=== PATIENT | female | born 1945 | race American Indian/Alaskan Native ===

== ENCOUNTER 2017-03-23 17:06 | Outpatient (CLI) | payer MEDICARE ==
[2017-03-23 17:33] LABS: Blood Urea Nitrogen 6 mg/dL (7-17)
--- NOTE | 2017-03-25 07:32 | Magnetic Resonance Report ---
MRI OF THE BRAIN WITHOUT CONTRAST: HISTORY: Right orbital mass, loss of vision. PROCEDURE: Multiplanar, multisequence MR imaging of the brain without IV contrast was performed. FINDINGS: Please note that the patient refused IV gadolinium and terminated the exam early. MR brain without contrast was performed. There is advanced cortical volume loss. The left cerebral hemisphere is more affected than the right cerebral hemisphere. There are moderate nonspecific chronic white matter changes bilaterally which again are more pronounced on the left side. 2 or 3 chronic lacunar infarcts are identified in the left rivera radiata. An approximate 3.2 cm chronic cortical infarct is identified in the left occipital lobe. There is no evidence for diffusion restriction, hemorrhage, mass or extra-axial fluid collection. The midline structures are central. The basal cisterns are patent. Normal ventricular size. Noncontrast thin collimation images were obtained through the orbital cavities which demonstrate no specific abnormality. The globes, optic nerves, extraocular muscles and retro-orbital fat are within normal limits. The visualized paranasal sinuses and mastoid air cells are well aerated. IMPRESSION: Advanced volume loss and chronic white matter changes which are most pronounced in the left cerebral hemisphere. Chronic infarcts in the left rivera radiata and left occipital lobe. No acute intracranial process is appreciated. No right orbital mass is suspected. These findings appear essentially unchanged since the noncontrast CT head performed 11/05/13.
== END 2017-03-23 17:07 | disposition home or self-care (01) ==
LOC: MRI 17:06
PROVIDERS: ATTEND Ophthalmology
DX: H47.093 Other disorders of optic nerve, not elsewhere classified, bilateral (principal); H54.40 Blindness, one eye, unspecified eye; I63.9 Cerebral infarction, unspecified; I10 Essential (primary) hypertension; Z87.891 Personal history of nicotine dependence
CPT/HCPCS: 36415; 70551; 82565; 84520

== ENCOUNTER 2017-04-03 15:19 | Outpatient (CLI) | payer MEDICARE ==
--- NOTE | 2017-04-07 07:54 | Magnetic Resonance Report ---
MRI OF THE BRAIN WITHOUT CONTRAST: HISTORY: Loss of the site, right optic nerve mass PROCEDURE: Multiplanar, multisequence MR imaging of the brain without IV contrast was performed. Thin collimation images were performed through the orbital cavities. FINDINGS: Compared to the MR brain dated 03/23/[address] head performed 11/05/13. Volume loss is again noted. This is again most pronounced throughout the left cerebral hemisphere. There is diffuse increase T2 signal within the white matter of the left cerebral hemisphere as well as areas of cortical infarct in the left parietal and left occipital lobes. Subcentimeter chronic lacunar infarcts are noted in the left rivera radiata. Cortical infarct in the left occipital region measures up to 3 cm in diameter. Mild nonspecific chronic white matter changes are noted within the right cerebral hemisphere. The right cerebral hemisphere is within normal limits otherwise. No evidence for acute ischemia, hemorrhage, mass or extra-axial fluid collection. The posterior fossa and its contents are within normal limits. Thin collimation images through both orbital cavities demonstrate no abnormality. The optic nerves are symmetric and unremarkable. The extraocular muscles and retro-orbital fat are within normal limits. Normal globes. IMPRESSION: No orbital mass is detected. Volume loss. There is evidence for a previous ischemic insult throughout the left cerebral hemisphere. This primarily affects the watershed zones within the left cerebral hemisphere. Chronic cortical infarcts are identified in the left parietal cortex and left occipital cortex. These findings appear unchanged since the CT brain without contrast dated 11/05/13.
== END 2017-04-03 15:20 | disposition home or self-care (01) ==
LOC: MRI 15:19
PROVIDERS: ATTEND Ophthalmology
DX: I63.9 Cerebral infarction, unspecified (principal); H54.62 Unqualified visual loss, left eye, normal vision right eye; I10 Essential (primary) hypertension; Z87.891 Personal history of nicotine dependence
CPT/HCPCS: 70551

== ENCOUNTER 2019-05-03 06:07 | Inpatient (IN) | payer MEDICARE, MEDICAID ==
[2019-05-03] MEDS ORDERED: LORazepam 2 MG/ML VIAL IV ONE ×3 (06:10→07:37)
[2019-05-03] MEDS ORDERED: LORazepam 2 MG/ML VIAL ONE (06:12)
[2019-05-03] MEDS ORDERED: levETIRAcetam 1000 MG/NS 0.75% 1,000 MG/100 ML BAG IV ONE ×2 (06:16)
--- NOTE | 2019-05-03 06:22 | Consultation ---
History of Present Illness History of present illness: [facility] Impression: Patient presenting in focal motor status without impaired awareness. Similar presentation in 2014. Likely from prior left hemispheric cortical infarcts seen on CT. Rule out toxic/metabolic/infectious etiology provoking this seizure focus. Presentation does not appear to include negative deficits, so low suspicion for stroke. Not a tpa candidate due to: low suspicion for stroke - patient seizing Not an LARRY candidate due to: low suspicion for stroke - patient seizing Differential Diagnosis: 1. Seizure Comments: Door time: 606 [employer] contacted: [phone] [employer] at bedside: 0600 NIHSS assessment time: 606 Recommendations: Lorazepam 2mg IV Load with levetiracetam 1000mg IV once Start levetiracetam 500mg BID maintenance 12 hours after load Seizure precautions Lorazepam PRN seizures longer than 3 mins Toxic/metabolic/infectious work up Consider MRI brain if any new deficits present after seizure abates inpatient neurology consultation Discussed with ED MD CC: stroke alert History of Present Illness Patient is a73 year old woman with a history of prior stroke with residual spastic right hemiparesis presenting with seizures. Last normal at 0500 as witnessed by [facility] staff. Thereafter staff found here with rhythmic jerking of the right face and arm. Her speech has been incomprehensible. She is following commands and awake, though. Records do indicate patient had similar events in 2014, for which she was placed on levetiracetam. However, she is not currently on any antiseizure medications. Diagnostic: CT head wo - nothing acute Exam: NIHSS score: 21 Patient with rhythmic jerking of the right face and arm with forced right gaze deviation. She can follow commands with LUE. Speech is incomprehensible. Medical Decision Making: - Extensive number of diagnosis or management options are considered above. - Extensive amount of complex data reviewed. - High risk of complication and/or morbidity or mortality are associated with differential diagnostic considerations above. - There may be Uncertain outcome and increased probability of prolonged functional impairment or high probability of severe prolonged functional impairment associated with some of these differential diagnosis. Medical Data Reviewed: 1.Data reviewed include clinical labs, radiology, Medical Tests; 2.Tests results discussed w/performing or interpreting physician; 3.Obtaining/reviewing old medical records; 4.Obtaining case history from another source; 5.Independent review of image, tracing or specimen. Patient was informed the Neurology Consult would happen via TeleHealth consult by way of interactive audio and video telecommunications and consented to receiving care in this manner. Medications and Allergies Allergies Allergy/AdvReac Type Severity Reaction Status Date / Time No Known Allergies Allergy Verified 11/04/13 11:27 Home Medications Medication Instructions Recorded Confirmed Last Taken Type Acetaminophen [Acetaminophen TAB] 650 mg PO Q6H PRN 11/04/13 11/04/13 Unknown History Calcium Carbonate [Oscal] 500 mg PO DAILY 11/04/13 11/04/13 Unknown History Docusate Sodium [Colace CAP] 100 mg PO DAILY 11/04/13 11/04/13 Unknown History Magnesium Hydroxide [Milk of 30 ml PO DAILY PRN 11/04/13 11/04/13 Unknown History Magnesia] Potassium Chloride [Klor-Con 10] 20 meq PO BID 11/04/13 11/04/13 Unknown History Sennosides/Docusate Sodium [Senna 2 tab PO BID 11/04/13 11/04/13 Unknown History Laxative Tablet] Clopidogrel [Plavix] 75 mg PO ONCE #30 tablet 11/06/13 Unknown Rx Simvastatin (Nf) [Zocor TAB] 20 mg PO QHS #30 tablet 11/06/13 Unknown Rx levETIRAcetam [Keppra TAB] 500 mg PO BID #60 tablet 11/06/13 Unknown Rx - Level of Consciousness 1a. Level of Consciousness: alert/keenly responsive - LOC Questions 1b. LOC Questions: dysarthric/intubated - LOC Command 1c. LOC Commands: performs tasks correctly - Best Gaze 2. Best Gaze: forced deviation - Visual 3. Visual: no visual loss - Facial Palsy 4. Facial Palsy: partial paralysis - Motor Arm 5a. Motor Arm Left: no drift 5b. Motor Arm Right: no gravity effort - Motor Leg 6a. Motor Leg Left: no movement 6b. Motor Leg Right: no movement - Limb Ataxia 7. Limb Ataxia: absent - Sensory 8. Sensory: normal - Best Language 9. Best Language: mute/global aphasia - Dysarthria 10. Dysarthria: mute/anarrthric - Extinction and Inattention 11. Extinction/Inattention: no abnormality - Scoring Total Score: 21 Stroke Severity: Severe Stroke
--- NOTE | 2019-05-03 06:45 | Cat Scan Report ---
CT HEAD WITHOUT CONTRAST INDICATION / CLINICAL INFORMATION: MAIN: STROKE ALERT. ALTERED MENTAL STATUS. TECHNIQUE: All CT scans at this location are performed using CT dose reduction for ALARA by means of automated e xposure control. COMPARISON: MRI dated 04/03/[address] dated 11/05/13 FINDINGS: HEMORRHAGE: None. EXTRA-AXIAL SPACES: Normal in size and morphology for the patient's age. VENTRICULAR SYSTEM: Mild ex vacuo dilation of the left lateral ventricle is unchanged. CEREBRAL PARENCHYMA: Left frontal and left parieto-occipital encephalomalacia and extensive bilateral white matter hypodensities are unchanged. Is likely related to old ischemic insults. No acute territ orial infarct noted. MIDLINE SHIFT OR HERNIATION: None. CEREBELLUM / BRAINSTEM: No significant abnormality. ORBITS: Normal as visualized. SOFT TISSUES of HEAD: No significant abnormality. CALVARIUM: No significant abnormality. PARANASAL SINUSES / MASTOID AIR CELLS: Normal as visualized. ADDITIONAL FINDINGS: None. IMPRESSION: 1. No acute intracranial abnormality. 2. Old left cerebral hemisphere ischemic lesions, unchanged. COMMUNICATION: Time of Communication (MEDICAL CENTER MANAGER/CDT): 5:40 AM Licensed Practitioner Receiving Report: Dr. Todd in the ED Signer Name: Christine Cheema MD Signed: 05/03/2019 6:40 AM Workstation Name: [id number]
[2019-05-03] MEDS ORDERED: FOSPHENYTOIN 1,000 MG.PE in SODIUM CHLORIDE 0.9% 100 ML IV ONE (06:49)
--- NOTE | 2019-05-03 06:55 | Emergency Department Report ---
ED Seizure HPI - General Chief Complaint: Neuro Symptoms/Deficit Stated Complaint: POSS STROKE Time Seen by Provider: 05/03/19 06:15 Source: EMS Mode of arrival: Stretcher Limitations: Altered Mental Status, Physical Limitation - History of Present Illness Initial Comments: 73-year-old female presents from a [facility] with a past medical hi story of CVA with residual right-sided weakness, aphasia, hyperlipidemia, and seizures presents to the hospital with complaints of seizure activity. EMS initially called for acute stroke citing right-sided itching of face, right arm and right leg that started at 5 AM. No medications were given in route. Patient is on Keppra 1000 mg twice a day as per longterm record. Patient is able to follow commands although have active right-sided face twitching, right eye deviation, and right arm twitching as well consistent with focal seizure. Patient had a similar presentation in 2013 with diagnosis of new onset seizure at that time. Blood glucose 86 upon arrival. - Related Data Home Medications Medication Instructions Recorded Confirmed Last Taken Acetaminophen [Acetaminophen TAB] 650 mg PO Q6H PRN 11/04/13 05/03/19 Unknown Calcium Carbonate [Oscal] 500 mg PO DAILY 11/04/13 05/03/19 Unknown Docusate Sodium [Colace CAP] 100 mg PO DAILY 11/04/13 05/03/19 Unknown Magnesium Hydroxide [Milk of 30 ml PO DAILY PRN 11/04/13 05/03/19 Unknown Magnesia] Potassium Chloride [Klor-Con 10] 20 meq PO BID 11/04/13 05/03/19 Unknown Sennosides/Docusate Sodium [Senna 2 tab PO BID 11/04/13 05/03/19 Unknown Laxative Tablet] Brimonidine Tartrate/Timolol 10 ml OP Q12HR 05/03/19 05/03/19 Unknown [Combigan 0.2%-0.5% Eye Drops] Brinzolamide [Azopt 1%] 1 drop OU Q12HR 05/03/19 05/03/19 Unknown Calcium Carbonate/Vitamin D3 1 each PO QDAY 05/03/19 05/03/19 Unknown [Oysco 500-Vit D3 200 Tablet] Latanoprost 0.005% [Xalatan 0.005%] 1 drop OP QPM 05/03/19 05/03/19 Unknown levETIRAcetam [Keppra] 1,000 mg PO BID 05/03/19 05/03/19 Unknown Previous Rx's Medication Instructions Recorded Last Taken Type Clopidogrel [Plavix] 75 mg PO ONCE #30 tablet 11/06/13 Unknown Rx Simvastatin (Nf) [Zocor TAB] 20 mg PO QHS #30 tablet 11/06/13 Unknown Rx Allergies Allergy/AdvReac Type Severity Reaction Status Date / Time No Known Allergies Allergy Verified 11/04/13 11:27 ED Review of Systems ROS: Stated complaint: POSS STROKE Other details as noted in HPI ED Past Medical Hx - Past Medical History Hx Hypertension: Yes Hx CVA: Yes Hx Seizures: Yes Hx Psychiatric Treatment: Yes ("behavorial issues") Hx Dementia: Yes Additional medical history: DVT - Social History Smoking Status: Never Smoker Substance Use Type: None - Medications Home Medications: Home Medications Medication Instructions Recorded Confirmed Last Taken Type Acetaminophen [Acetaminophen TAB] 650 mg PO Q6H PRN 11/04/13 05/03/19 Unknown History Calcium Carbonate [Oscal] 500 mg PO DAILY 11/04/13 05/03/19 Unknown History Docusate Sodium [Colace CAP] 100 mg PO DAILY 11/04/13 05/03/19 Unknown History Magnesium Hydroxide [Milk of 30 ml PO DAILY PRN 11/04/13 05/03/19 Unknown History Magnesia] Potassium Chloride [Klor-Con 10] 20 meq PO BID 11/04/13 05/03/19 Unknown History Sennosides/Docusate Sodium [Senna 2 tab PO BID 11/04/13 05/03/19 Unknown History Laxative Tablet] Clopidogrel [Plavix] 75 mg PO ONCE #30 tablet 11/06/13 05/03/19 Unknown Rx Simvastatin (Nf) [Zocor TAB] 20 mg PO QHS #30 tablet 11/06/13 05/03/19 Unknown Rx Brimonidine Tartrate/Timolol 10 ml OP Q12HR 05/03/19 05/03/19 Unknown History [Combigan 0.2%-0.5% Eye Drops] Brinzolamide [Azopt 1%] 1 drop OU Q12HR 05/03/19 05/03/19 Unknown History Calcium Carbonate/Vitamin D3 1 each PO QDAY 05/03/19 05/03/19 Unknown History [Oysco 500-Vit D3 200 Tablet] Latanoprost 0.005% [Xalatan 0.005%] 1 drop OP QPM 05/03/19 05/03/19 Unknown History levETIRAcetam [Keppra] 1,000 mg PO BID 05/03/19 05/03/19 Unknown History ED Physical Exam - General Limitations: Altered Mental Status, Physical Limitation ED Course Vital Signs 05/03/19 05/03/19 05/03/19 06:10 06:39 06:52 Temperature 98.0 F Pulse Rate 104 H Respiratory 24 Rate Blood Pressure 132/79 Blood Pressure [Left] O2 Sat by Pulse 96 97 Oximetry 05/03/19 05/03/19 08:37 08:38 Temperature 98.8 F Pulse Rate 94 H Respiratory 20 20 Rate Blood Pressure Blood Pressure 139/67 [Left] O2 Sat by Pulse 96 96 Oximetry - Reevaluation(s) Reevaluation #1: 05/03/19 06:[address] patient was still having right face and right arm clonic tonic movement despite Keppra and Ativan 2 mg. Additional Ativan 2 mg provided and fosphophenyton ordered. Patient still able to follow commands. Reevaluation #2: 05/03/19 07:37 right sided twitching has decreased significantly but still present. gaze preference improved. Additional ativan 1 mg ordered. 05/03/19 08:28 seizure activity stopped after the additional ativan dose. - Consultations Consultation #1: 05/03/19 06:52 Patient was evaluated by neurologist at the door for possible stroke. Gave verbal order for Ativan 2 mg IV and Keppra 1 g. ED Medical Decision Making - Lab Data Result diagrams: 05/03/19 06:42 05/03/19 06:42 Lab Results 05/03/19 05/03/19 05/03/19 Range/Units 06:22 06:42 06:42 WBC 7.3 (4.5-11.0) K/mm3 RBC 5.57 H (3.65-5.03) M/mm3 Hgb 15.0 H (10.1-14.3) gm/dl Hct 43.7 H (30.3-42.9) % MCV 78 L (79-97) fl MCH 27 L (28-32) pg MCHC 34 (30-34) % RDW 15.2 (13.2-15.2) % Plt Count 219 (140-440) K/mm3 Lymph % (Auto) 31.8 (13.4-35.0) % Blount % (Auto) 7.9 H (0.0-7.3) % Eos % (Auto) 1.6 (0.0-4.3) % Baso % (Auto) 0.8 (0.0-1.8) % Lymph # 2.3 (1.2-5.4) K/mm3 Blount # 0.6 (0.0-0.8) K/mm3 Eos # 0.1 (0.0-0.4) K/mm3 Baso # 0.1 (0.0-0.1) K/mm3 Seg Neutrophils % 57.9 (40.0-70.0) % Seg Neutrophils # 4.2 (1.8-7.7) K/mm3 PT 13.6 (12.2-14.9) Sec. INR 1.07 (0.87-1.13) APTT 32.2 (24.2-36.6) Sec. Thrombin Time (15.1-19.6) Sec. Sodium (137-145) mmol/L Potassium (3.6-5.0) mmol/L Chloride (98-107) mmol/L Carbon Dioxide (22-30) mmol/L Anion Gap mmol/L BUN (7-17) mg/dL Creatinine (0.7-1.2) mg/dL Estimated GFR ml/min BUN/Creatinine Ratio % Glucose (65-100) mg/dL POC Glucose 86 (70-105) Calcium (8.4-10.2) mg/dL Magnesium (1.7-2.3) mg/dL Total Bilirubin (0.1-1.2) mg/dL Direct Bilirubin (0-0.2) mg/dL Indirect Bilirubin mg/dL AST (5-40) units/L ALT (7-56) units/L Alkaline Phosphatase (35-129) units/L Troponin T (0.00-0.029) ng/mL Total Protein (6.3-8.2) g/dL Albumin (3.9-5) g/dL Albumin/Globulin Ratio % 10/01/19 10/01/19 10/01/19 Range/Units 06:42 06:42 06:42 WBC (4.5-11.0) K/mm3 RBC (3.65-5.03) M/mm3 Hgb (10.1-14.3) gm/dl Hct (30.3-42.9) % MCV (79-97) fl MCH (28-32) pg MCHC (30-34) % RDW (13.2-15.2) % Plt Count (140-440) K/mm3 Lymph % (Auto) (13.4-35.0) % Blount % (Auto) (0.0-7.3) % Eos % (Auto) (0.0-4.3) % Baso % (Auto) (0.0-1.8) % Lymph # (1.2-5.4) K/mm3 Blount # (0.0-0.8) K/mm3 Eos # (0.0-0.4) K/mm3 Baso # (0.0-0.1) K/mm3 Seg Neutrophils % (40.0-70.0) % Seg Neutrophils # (1.8-7.7) K/mm3 PT (12.2-14.9) Sec. INR (0.87-1.13) APTT (24.2-36.6) Sec. Thrombin Time 16.8 (15.1-19.6) Sec. Sodium 140 (137-145) mmol/L Potassium 3.7 (3.6-5.0) mmol/L Chloride 105.7 (98-107) mmol/L Carbon Dioxide 22 (22-30) mmol/L Anion Gap 16 mmol/L BUN 5 L (7-17) mg/dL Creatinine 0.8 (0.7-1.2) mg/dL Estimated GFR > 60 ml/min BUN/Creatinine Ratio 6 % Glucose 111 H (65-100) mg/dL POC Glucose (70-105) Calcium 9.4 (8.4-10.2) mg/dL Magnesium 2.30 (1.7-2.3) mg/dL Total Bilirubin (0.1-1.2) mg/dL Direct Bilirubin (0-0.2) mg/dL Indirect Bilirubin mg/dL AST (5-40) units/L ALT (7-56) units/L Alkaline Phosphatase (35-129) units/L Troponin T < 0.010 (0.00-0.029) ng/mL Total Protein (6.3-8.2) g/dL Albumin (3.9-5) g/dL Albumin/Globulin Ratio % 05/03/19 Range/Units 06:42 WBC (4.5-11.0) K/mm3 RBC (3.65-5.03) M/mm3 Hgb (10.1-14.3) gm/dl Hct (30.3-42.9) % MCV (79-97) fl MCH (28-32) pg MCHC (30-34) % RDW (13.2-15.2) % Plt Count (140-440) K/mm3 Lymph % (Auto) (13.4-35.0) % Blount % (Auto) (0.0-7.3) % Eos % (Auto) (0.0-4.3) % Baso % (Auto) (0.0-1.8) % Lymph # (1.2-5.4) K/mm3 Blount # (0.0-0.8) K/mm3 Eos # (0.0-0.4) K/mm3 Baso # (0.0-0.1) K/mm3 Seg Neutrophils % (40.0-70.0) % Seg Neutrophils # (1.8-7.7) K/mm3 PT (12.2-14.9) Sec. INR (0.87-1.13) APTT (24.2-36.6) Sec. Thrombin Time (15.1-19.6) Sec. Sodium (137-145) mmol/L Potassium (3.6-5.0) mmol/L Chloride (98-107) mmol/L Carbon Dioxide (22-30) mmol/L Anion Gap mmol/L BUN (7-17) mg/dL Creatinine (0.7-1.2) mg/dL Estimated GFR ml/min BUN/Creatinine Ratio % Glucose (65-100) mg/dL POC Glucose (70-105) Calcium (8.4-10.2) mg/dL Magnesium (1.7-2.3) mg/dL Total Bilirubin 0.30 (0.1-1.2) mg/dL Direct Bilirubin < 0.2 (0-0.2) mg/dL Indirect Bilirubin 0.1 mg/dL AST 14 (5-40) units/L ALT 12 (7-56) units/L Alkaline Phosphatase 66 (35-129) units/L Troponin T (0.00-0.029) ng/mL Total Protein 7.4 (6.3-8.2) g/dL Albumin 3.8 L (3.9-5) g/dL Albumin/Globulin Ratio 1.1 % - EKG Data -: EKG Interpreted by Me EKG shows normal: sinus rhythm, ST-T waves (lvh, lat t wve inv) Rate: normal - EKG Data When compared to previous EKG there are: no significant change - Radiology Data Radiology results: report reviewed CT HEAD WITHOUT CONTRAST INDICATION / CLINICAL INFORMATION: MAIN: STROKE ALERT. ALTERED MENTAL STATUS. TECHNIQUE: All CT scans at this location are performed using CT dose reduction for ALARA by means of automated exposure control. COMPARISON: MRI dated 04/03/[address] dated 11/05/13 FINDINGS: HEMORRHAGE: None. EXTRA-AXIAL SPACES: Normal in size and morphology for the patient's age. VENTRICULAR SYSTEM: Mild ex vacuo dilation of the left lateral ventricle is unchanged. CEREBRAL PARENCHYMA: Left frontal and left parieto-occipital encephalomalacia and extensive bilateral white matter hypodensities are unchanged. Is likely related to old ischemic insults. No a cute territorial infarct noted. MIDLINE SHIFT OR HERNIATION: None. CEREBELLUM / BRAINSTEM: No significant abnormality. ORBITS: Normal as visualized. SOFT TISSUES of HEAD: No significant abnormality. CALVARIUM: No significant abnormality. PARANASAL SINUSES / MASTOID AIR CELLS: Normal as visualized. ADDITIONAL FINDINGS: None. IMPRESSION: 1. No acute intracranial abnormality. 2. Old left cerebral hemisphere ischemic lesions, unchanged. - Medical Decision Making Patient had focal seizure activity for greater than 1 hour requiring multiple doses of Ativan (5mg IV total), Keppra 1g, and fosphenytoin 1g for improvement. CT head and labs unremarkable. She will be the hospital for further treatment. - Differential Diagnosis sz, cva, intracranial mass, hemorrhage Critical Care Time: No Critical care attestation.: If time is entered above; I have spent that time in minutes in the direct care of this critically ill patient, excluding procedure time. ED Disposition Clinical Impression: Spastic hemiparesis affecting dominant side, Aphasia as late effect of stroke, Focal seizure Disposition: DC-[id number] OP ADMIT IP TO THIS HOSP Is pt being admited?: Yes Condition: Stable Time of Disposition: 07:34 (Dr leigh/dickson)
[2019-05-03 07:01] LABS: Basophils # (Auto) 0.1 K/mm3 (0.0-0.1); Basophils % (Auto) 0.8 % (0.0-1.8); Eosinophils # (Auto) 0.1 K/mm3 (0.0-0.4); Eosinophils % (Auto) 1.6 % (0.0-4.3); Hematocrit 43.7 % (30.3-42.9); Lymphocytes # (Auto) 2.3 K/mm3 (1.2-5.4); Lymphocytes % (Auto) 31.8 % (13.4-35.0); Mean Corpuscular HGB Conc 34 % (30-34); Mean Corpuscular Volume 78 fl (79-97); Monocytes # (Auto) 0.6 K/mm3 (0.0-0.8); Monocytes % (Auto) 7.9 % (0.0-7.3); Platelet Count 219 K/mm3 (140-440); Red Blood Count 5.57 M/mm3 (3.65-5.03); Red Cell Distribution Width 15.2 % (13.2-15.2)
[2019-05-03 07:12] LABS: BUN/Creatinine Ratio 6; Blood Urea Nitrogen 5 mg/dL (7-17); Calcium 9.4 mg/dL (8.4-10.2); Hemolysis Index 5; INR 1.07 (0.87-1.13)
[2019-05-03 07:13] LABS: Partial Thromboplastin Time 32.2 Sec. (24.2-36.6)
[2019-05-03 07:16] LABS: Alanine Aminotransferase 12 units/L (7-56); Albumin 3.8 g/dL (3.9-5)
[2019-05-03 07:22] LABS: Bilirubin,Direct < 0.2 mg/dL (0-0.2)
[2019-05-03] MEDS ORDERED: ONDANSETRON 4 MG/2 ML INJ IV PRN (07:53)
[2019-05-03] MEDS ORDERED: ACETAMINOPHEN 325 MG TAB PO PRN (07:53)
[2019-05-03 08:53] LABS: Amphetamine Screen,Urine PRESUMPTIVE NEGATIVE; Benzodiazepines Screen,Urine PRESUMPTIVE NEGATIVE; Cannabinoid Screen,Urine PRESUMPTIVE NEGATIVE; Cocaine Screen,Urine PRESUMPTIVE NEGATIVE; Methadone Screen,Urine PRESUMPTIVE NEGATIVE; Opiate Screen,Urine PRESUMPTIVE NEGATIVE
[2019-05-03 09:00] LABS: Bilirubin,Urine NEG (Negative); Blood,Urine NEG (Negative); Color,Urine Yellow (Yellow); Mucus,Urine FEW /HPF; Protein,Urine <15 mg/dL mg/dL (Negative); Urobilinogen,Urine < 2.0 mg/dL (<2.0)
[2019-05-03] MEDS ORDERED: MAGNESIUM HYDROXIDE (MOM) ORAL LIQD UDC PO PRN (10:00)
[2019-05-03] MEDS ORDERED: POTASSIUM CHLORIDE 20 MEQ PO SCH (10:00)
[2019-05-03] MEDS ORDERED: hydrALAZINE 20 MG/1 ML INJ IV PRN (12:03)
--- NOTE | 2019-05-03 12:03 | History and Physical Report ---
History of Present Illness Date of admission: 05/03/19 07:39 Chief complaint: Twitching History of present illness: MS. RODRIGUEZ IS 68 YO WOMAN LIVING AT [facility] WITH HISTORY OF CVA WITH RIGHT HEMIPARESIS, EXPRESSIVE APHASIA, recurrent seizures GOUT AND DYSLIDEPMIA WHO PRESENTS WITH SUDDEN ONSET OF TWITCHING She had confusion and was not herself. She kept having tremors and shaking of her right upper extremity. She does not do this at baseline. He denied any fevers any complaints prior to this happening. The patient takes her seizure medications as prescribed in the [facility] every day. Past History Past Medical History: seizures, cva with R michael and expressive aphasia, gout, hyperlipidemia, Past Surgical History: Other (UNABLE TO OBTAIN) Social history: no significant social history Family history: no significant family history Medications and Allergies Allergies Allergy/AdvReac Type Severity Reaction Status Date / Time No Known Allergies Allergy Verified 11/04/13 11:27 Home Medications Medication Instructions Recorded Confirmed Last Taken Type Acetaminophen [Acetaminophen TAB] 650 mg PO Q6H PRN 11/04/13 05/03/19 Unknown History Calcium Carbonate [Oscal 1250MG 500 mg PO DAILY 11/04/13 05/03/19 Unknown History TAB] Docusate Sodium [Colace CAP] 100 mg PO DAILY 11/04/13 05/03/19 Unknown History Magnesium Hydroxide [Milk of 30 ml PO DAILY PRN 11/04/13 05/03/19 Unknown History Magnesia] Potassium Chloride [Klor-Con 10] 20 meq PO BID 11/04/13 05/03/19 Unknown History Sennosides/Docusate Sodium [Senna 2 tab PO BID 11/04/13 05/03/19 Unknown History Laxative Tablet] Clopidogrel [Plavix] 75 mg PO ONCE #30 tablet 11/06/13 05/03/19 Unknown Rx Simvastatin (Nf) [Zocor TAB] 20 mg PO QHS #30 tablet 11/06/13 05/03/19 Unknown Rx Brimonidine Tartrate/Timolol 10 ml OP Q12HR 05/03/19 05/03/19 Unknown History [Combigan 0.2%-0.5% Eye Drops] Brinzolamide [Azopt 1%] 1 drop OU Q12HR 05/03/19 05/03/19 Unknown History Calcium Carbonate/Vitamin D3 1 each PO QDAY 05/03/19 05/03/19 Unknown History [Oysco 500-Vit D3 200 Tablet] Latanoprost 0.005% 1 drop OP QPM 05/03/19 05/03/19 Unknown History levETIRAcetam [Keppra] 1,000 mg PO BID 05/03/19 05/03/19 Unknown History Gabapentin [Neurontin] 400 mg PO BID #60 capsule 05/05/19 Unknown Rx clonazePAM [KlonoPIN] 1 mg PO Q6H PRN #7 tablet 05/05/19 Unknown Rx Active Meds: Active Medications Acetaminophen (Tylenol) 650 mg PO Q4H PRN PRN Reason: Pain MILD(1-3)/Fever >100.5/[place] Clopidogrel Bisulfate (Plavix) 75 mg PO DAILY IMTIAZ Docusate Sodium (Colace) 100 mg PO DAILY IMTIAZ Enoxaparin Sodium (Lovenox) 40 mg SUB-Q QDAY@2200 IMTIAZ Levetiracetam (Keppra) 500 mg PO BID IMTIAZ Magnesium Hydroxide (Milk Of Magnesia) 30 ml PO DAILY PRN PRN Reason: Constipation Ondansetron HCl (Zofran) 4 mg IV Q8H PRN PRN Reason: Nausea And Vomiting Potassium Chloride (K-Dur) 20 meq PO BID IMTIAZ Pravastatin Sodium (Pravachol) 40 mg PO QHS IMTIAZ Senna/Docusate Sodium (Senokot S) 2 tab PO BID IMTIAZ Sodium Chloride (Sodium Chloride Flush Syringe 10 Ml) 10 ml IV BID IMTIAZ Sodium Chloride (Sodium Chloride Flush Syringe 10 Ml) 10 ml IV PRN PRN PRN Reason: LINE FLUSH Review of Systems ROS unobtainable: due to mental status Exam - Constitutional Vitals: Temp Pulse Resp BP Pulse Ox 98.8 F 94 H 20 171/91 100 05/03/19 08:37 05/03/19 08:37 05/03/19 09:30 05/03/19 09:30 05/03/19 09:30 General appearance: Present: mild distress, well-nourished - EENT Eyes: Present: PERRL ENT: hearing intact, clear oral mucosa - Neck Neck: Present: supple, normal ROM - Respiratory Respiratory effort: normal Respiratory: bilateral: CTA - Cardiovascular Heart Sounds: Present: S1 & S2. Absent: rub, click - Extremities Extremities: pulses symmetrical, No edema Peripheral Pulses: within normal limits - Abdominal General gastrointestinal: Present: soft, non-tender, non-distended, normal bowel sounds Female genitourinary: Present: normal - Integumentary Integumentary: Present: clear, warm, dry - Musculoskeletal Musculoskeletal: other (Unable to cooperate with exam) - Psychiatric Psychiatric: no intact judgment & insight - Neurologic Neurologic: CNII-XII intact, other (Continuous shaking of right upper extremity) Results - Labs CBC & Chem 7: 05/05/19 07:45 05/05/19 07:45 Labs: Laboratory Last Values WBC 7.3 K/mm3 (4.5-11.0) 05/03/19 06:42 RBC 5.57 M/mm3 (3.65-5.03) H 05/03/19 06:42 Hgb 15.0 gm/dl (10.1-14.3) H 05/03/19 06:42 Hct 43.7 % (30.3-42.9) H 05/03/19 06:42 MCV 78 fl (79-97) L 05/03/19 06:42 MCH 27 pg (28-32) L 05/03/19 06:42 MCHC 34 % (30-34) 05/03/19 06:42 RDW 15.2 % (13.2-15.2) 05/03/19 06:42 Plt Count 219 K/mm3 (140-440) 05/03/19 06:42 Lymph % (Auto) 31.8 % (13.4-35.0) 05/03/19 06:42 [place] % (Auto) 7.9 % (0.0-7.3) H 05/03/19 06:42 Eos % (Auto) 1.6 % (0.0-4.3) 05/03/19 06:42 Baso % (Auto) 0.8 % (0.0-1.8) 05/03/19 06:42 Lymph # 2.3 K/mm3 (1.2-5.4) 05/03/19 06:42 [place] # 0.6 K/mm3 (0.0-0.8) 05/03/19 06:42 Eos # 0.1 K/mm3 (0.0-0.4) 05/03/19 06:42 Baso # 0.1 K/mm3 (0.0-0.1) 05/03/19 06:42 Seg Neutrophils % 57.9 % (40.0-70.0) 05/03/19 06:42 Seg Neutrophils # 4.2 K/mm3 (1.8-7.7) 05/03/19 06:42 PT 13.6 Sec. (12.2-14.9) 05/03/19 06:42 INR 1.07 (0.87-1.13) 05/03/19 06:42 APTT 32.2 Sec. (24.2-36.6) 05/03/19 06:42 Thrombin Time 16.8 Sec. (15.1-19.6) 05/03/19 06:42 Sodium 140 mmol/L (137-145) 05/03/19 06:42 Potassium 3.7 mmol/L (3.6-5.0) 05/03/19 06:42 Chloride 105.7 mmol/L (98-107) 05/03/19 06:42 Carbon Dioxide 22 mmol/L (22-30) 05/03/19 06:42 Anion Gap 16 mmol/L 05/03/19 06:42 BUN 5 mg/dL (7-17) L 05/03/19 06:42 Creatinine 0.8 mg/dL (0.7-1.2) 05/03/19 06:42 Estimated GFR > 60 ml/min 05/03/19 06:42 BUN/Creatinine Ratio 6 % 05/03/19 06:42 Glucose 111 mg/dL (65-100) H 05/03/19 06:42 POC Glucose 86 (70-105) 05/03/19 06:22 Calcium 9.4 mg/dL (8.4-10.2) 05/03/19 06:42 Magnesium 2.30 mg/dL (1.7-2.3) 05/03/19 06:42 Total Bilirubin 0.30 mg/dL (0.1-1.2) 05/03/19 06:42 Direct Bilirubin < 0.2 mg/dL (0-0.2) 05/03/19 06:42 Indirect Bilirubin 0.1 mg/dL 05/03/19 06:42 AST 14 units/L (5-40) 05/03/19 06:42 ALT 12 units/L (7-56) 05/03/19 06:42 Alkaline Phosphatase 66 units/L (35-129) 05/03/19 06:42 Troponin T < 0.010 ng/mL (0.00-0.029) 05/03/19 06:42 Total Protein 7.4 g/dL (6.3-8.2) 05/03/19 06:42 Albumin 3.8 g/dL (3.9-5) L 05/03/19 06:42 Albumin/Globulin Ratio 1.1 % 05/03/19 06:42 Urine Color Yellow (Yellow) 05/03/19 08:00 Urine Turbidity Clear (Clear) 05/03/19 08:00 Urine pH 6.0 (5.0-7.0) 05/03/19 08:00 Ur Specific [place] 1.015 (1.003-1.030) 05/03/19 08:00 Urine Protein <15 mg/dl mg/dL (Negative) 05/03/19 08:00 Urine Glucose (UA) Neg mg/dL (Negative) 05/03/19 08:00 Urine Ketones Neg mg/dL (Negative) 05/03/19 08:00 Urine Blood Neg (Negative) 05/03/19 08:00 Urine Nitrite Neg (Negative) 05/03/19 08:00 Urine Bilirubin Neg (Negative) 05/03/19 08:00 Urine Urobilinogen < 2.0 mg/dL (<2.0) 05/03/19 08:00 Ur Leukocyte Esterase Neg (Negative) 05/03/19 08:00 Urine WBC (Auto) 1.0 /HPF (0.0-6.0) 05/03/19 08:00 Urine RBC (Auto) 4.0 /HPF (0.0-6.0) 05/03/19 08:00 U Epithel Cells (Auto) 1.0 /HPF (0-13.0) 05/03/19 08:00 Urine Mucus Few /HPF 05/03/19 08:00 Urine Opiates Screen Presumptive negative 05/03/19 08:00 Urine Methadone Screen Presumptive negative 05/03/19 08:00 Ur Barbiturates Screen Presumptive negative 05/03/19 08:00 Ur Phencyclidine Scrn Presumptive negative 05/03/19 08:00 Ur Amphetamines Screen Presumptive negative 05/03/19 08:00 U Benzodiazepines Scrn Presumptive negative 05/03/19 08:00 Urine Cocaine Screen Presumptive negative 05/03/19 08:00 U Marijuana (THC) Screen Presumptive negative 05/03/19 08:00 Drugs of Abuse Note Disclamer 05/03/19 08:00 Assessment and Plan Assessment and plan: 73-year-old woman who was brought to the hospital for shaking of right upper extremity Status epilepticus sp 2 doses of ativan, phenytoin and keppa in ER -neurology consult -[facility]H no acute findings UA and Mg pending, currently able to protect her airway HTN urgency Optimize BP medications CCT 33 mins
[2019-05-03] MEDS ORDERED: LORazepam 2 MG/ML VIAL IV PRN (17:22)
[2019-05-03] MEDS: levETIRAcetam 500 MG in DEXTROSE 5% IN WATER 100 ML IV SCH (21:05)
[2019-05-03] MEDS ORDERED: NON-FORMULARY EACH (Simvastatin 20 MG) PO SCH (22:00)
[2019-05-03] MEDS ORDERED: levETIRAcetam 500 MG TAB PO SCH (22:00)
--- NOTE | 2019-05-03 22:16 | Consultation ---
Medications and Allergies Allergies Allergy/AdvReac Type Severity Reaction Status Date / Time No Known Allergies Allergy Verified 11/04/13 11:27 Home Medications Medication Instructions Recorded Confirmed Last Taken Type Acetaminophen [Acetaminophen TAB] 650 mg PO Q6H PRN 11/04/13 05/03/19 Unknown History Calcium Carbonate [Oscal] 500 mg PO DAILY 11/04/13 05/03/19 Unknown History Docusate Sodium [Colace CAP] 100 mg PO DAILY 11/04/13 05/03/19 Unknown History Magnesium Hydroxide [Milk of 30 ml PO DAILY PRN 11/04/13 05/03/19 Unknown History Magnesia] Potassium Chloride [Klor-Con 10] 20 meq PO BID 11/04/13 05/03/19 Unknown History Sennosides/Docusate Sodium [Senna 2 tab PO BID 11/04/13 05/03/19 Unknown History Laxative Tablet] Clopidogrel [Plavix] 75 mg PO ONCE #30 tablet 11/06/13 05/03/19 Unknown Rx Simvastatin (Nf) [Zocor TAB] 20 mg PO QHS #30 tablet 11/06/13 05/03/19 Unknown Rx Brimonidine Tartrate/Timolol 10 ml OP Q12HR 05/03/19 05/03/19 Unknown History [Combigan 0.2%-0.5% Eye Drops] Brinzolamide [Azopt 1%] 1 drop OU Q12HR 05/03/19 05/03/19 Unknown History Calcium Carbonate/Vitamin D3 1 each PO QDAY 05/03/19 05/03/19 Unknown History [Oysco 500-Vit D3 200 Tablet] Latanoprost 0.005% [Xalatan 0.005%] 1 drop OP QPM 05/03/19 05/03/19 Unknown History levETIRAcetam [Keppra] 1,000 mg PO BID 05/03/19 05/03/19 Unknown History Active Meds: Active Medications Acetaminophen (Tylenol) 650 mg PO Q4H PRN PRN Reason: Pain MILD(1-3)/Fever >100.5/[place] Clopidogrel Bisulfate (Plavix) 75 mg PO DAILY IMTIAZ Docusate Sodium (Colace) 100 mg PO DAILY IMTIAZ Enoxaparin Sodium (Lovenox) 40 mg SUB-Q QDAY@2200 IMTIAZ Hydralazine HCl (Apresoline) 10 mg IV Q4HR PRN PRN Reason: BP >160/100 Levetiracetam 500 mg/ Dextrose 105 mls @ 400 mls/hr IV Q12HR [facility] Last Admin: 05/03/19 21:05 Dose: 400 mls/hr Documented by: Lorazepam (Ativan) 1 mg IV Q4H PRN PRN Reason: Seizures Magnesium Hydroxide (Milk Of Magnesia) 30 ml PO DAILY PRN PRN Reason: Constipation Ondansetron HCl (Zofran) 4 mg IV Q8H PRN PRN Reason: Nausea And Vomiting Potassium Chloride (K-Dur) 20 meq PO BID IMTIAZ Pravastatin Sodium (Pravachol) 40 mg PO QHS IMTIAZ Senna/Docusate Sodium (Senokot S) 2 tab PO BID IMTIAZ Sodium Chloride (Sodium Chloride Flush Syringe 10 Ml) 10 ml IV BID IMTIAZ Sodium Chloride (Sodium Chloride Flush Syringe 10 Ml) 10 ml IV PRN PRN PRN Reason: LINE FLUSH Physical Examination - Vital Signs Vital Signs: Vital Signs Temp Pulse BP 98.0 F 104 H 132/79 05/03/19 06:10 05/03/19 06:10 05/03/19 06:10 Results - Laboratory Findings CBC and BMP: 05/03/19 06:42 05/03/19 06:42 Abnormal Lab Findings: Abnormal Labs 05/03/19 05/03/19 05/03/19 06:42 06:42 06:42 RBC 5.57 H Hgb 15.0 H Hct 43.7 H MCV 78 L MCH 27 L [place] % (Auto) 7.9 H BUN 5 L Glucose 111 H Albumin 3.8 L Assessment and Plan 73 YR OLD FEMALE A RESIDENT OF [facility]ISON WHO HAS A HISTORY OF STROKE,HYPERLIPEDEMIA AND SEIZURE WHICH INITIALLY STARTED IN 2013, PATIENT WAS GETTING KEPRA 1000MG BID IN THE PRISON. EMS WAS CALLED THIS EARLY AM FOR PATIENTS HAVING FREQUENT TWCHING OF RT SIDE OF FACE,RT ARM AND RT LOWER EXTREMITY. PATIENT WAS COHERENT DURING THE EPISODES. WORK UP AFTER ADMISSION INCLUDING CT SCAN DID NOT SHOW ANY ACUTE LESION, IT SHOWED OLD FINDINGS OF RT FRONTAL AND PARIETO OCCIPITAL ENCEPHALOMALACIA. PATIENT WAS ADMITTED WITH A DIAGNOSIS OF FOCAL MOTOR STATUS. AT ER KEPPRA AND ATIVAN WAS GIVEN AND PT WAS ADMITTED FOR FURTHER WORK UP AND MANAGEMENT. PHYSICAL EXAMINATION. PATIENT IS ALERT AND ANSWERS QUESTIONS SPORADICALLY, CONTINUES TO HAVE FREQUENT JERKING MOVEMENT OF RT UPPER AND LOWER EXTREMITIES IN ADDITION TO FACIAL TWITCHING.TRIES TO FOLLOW COMMAND IN BETWEEN THE JERKING MOVEMENTS AND FACIAL TWITCHING. HEART-NORMAL RATE AND RYTHM CAROTIDS- BOTH PALPABLE. CRANIAL NERVES - PUPILS REACT TO LIGHT, OTHER CRANIAL NERVES ARE WITH IN NORMAL LIMIT WITHIN LIMITATION OF EXAMINATION DUE TO PT NOT RESPONDING CONSISTENTLY TO QUESTIONS, MOTOR- SEEMS TO HAVE INCREASED MUSCLE TONE ON THE RT SIDE COMPARED TO THE LEFT, REFLEXES- REFLEXES ARE SLIGHTLY INCREASED ON THE RT SIDE WITH EQUIVOCAL TOE ON THE RT SIDE. SENSORY- SENSORY EXAMINATION IS GROSSLY INTACT. IMPRESSION. 1. FOCAL MOTOR SEIZURE INVOLVING RT. SIDE OF THE BODY FROM A SEIZURE FOCUS ON THE LEFT HEMISPHERE FROM OLD STROKE, 2. ALSO HAS INTERMITTENT MYOCLONIC JERKS IN ADDITION TO FOCAL MOTOR SEIZURE. 3. REASON FOR ACTIVATION OF SEIZURE FOCUS IS NOT CLEAR, NO EVIDENCE OF INTRA CRANIAL HEMORRHAGE OR ELECTROLYTE ABNORMALITY OR ANY EVIDENCE OF INFECTION. RECOMMEND. 1. CONTINUE KEPPRA 1000MG BID 2. CLONAZEPAM 1MG Q 6 HR PRN FOR MYOCLONIC JERKS. 3, MAINTAIN SEIZURE PRECAUTION 4. WILL CONSIDER MRI OF BRAIN WHEN SEIZURE STOPS TO LOOK FOR ANY NEW INTRACRANIAL LESION.
[2019-05-03] MEDS: POTASSIUM CHLORIDE ER 20 MEQ TAB PO SCH (23:06)
[2019-05-03] MEDS: SENNOSIDES/DOCUSATE SODIUM 8.6/50 MG TAB PO SCH (23:07)
[2019-05-03] MEDS: ENOXAPARIN 40 MG/0.4 ML INJ SUB-Q SCH (23:09)
[2019-05-03] MEDS: clonazePAM 0.5 MG TAB PO PRN (23:09)
[2019-05-03] MEDS: PRAVASTATIN 40 MG TAB PO SCH (23:10)
[2019-05-04] MEDS: levETIRAcetam 500 MG in DEXTROSE 5% IN WATER 100 ML IV SCH
[2019-05-04] MEDS ORDERED: ACETAMINOPHEN 325 MG TAB PO PRN (08:33)
[2019-05-04] MEDS ORDERED: CALCIUM CARBONATE 1250 MG TAB PO SCH (10:00)
[2019-05-04] MEDS ORDERED: BRINZOLAMIDE OU SCH (10:00)
[2019-05-04] MEDS: DOCUSATE SODIUM 100 MG CAP PO SCH (10:07)
[2019-05-04] MEDS: POTASSIUM CHLORIDE ER 20 MEQ TAB PO SCH ×3 (10:07→23:02)
[2019-05-04] MEDS: CLOPIDOGREL 75 MG TAB PO SCH (10:08)
[2019-05-04] MEDS: SENNOSIDES/DOCUSATE SODIUM 8.6/50 MG TAB PO SCH ×3 (10:20→23:02)
[2019-05-04] MEDS: levETIRAcetam 1,000 MG in DEXTROSE 5% IN WATER 100 ML IV SCH (10:20)
--- NOTE | 2019-05-04 10:48 | Progress Note ---
Assessment and Plan Assessment and plan: 73-year-old woman who was brought to the hospital for shaking of right upper extremity Status epilepticus sp 2 doses of ativan, phenytoin and keppa in ER -neurology consult -[facility]H no acute findings UA and Mg pending, currently able to protect her airway Case discussed with neurologist, continue benzodiazepine HTN urgency Optimize BP medications CCT 33 mins History Interval history: Continues to have episodes of right upper extremity shaking on and off Review of systems Constitutional: No fevers, no malaise, no joint pains CVS: No chest pain, no orthopnea, no pedal edema GI: No abdominal pain, no diarrhea, no vomiting, no constipation Respiratory: No shortness of breath, no wheezing, no coughing Hospitalist Physical - Physical exam Narrative exam: General.: Appears well, no distress, nontoxic HEENT: Moist mucous membranes, extraocular muscles intact, no lymphadenopathy Neck: supple Cardiac: S1-S2 heard Lungs: clear to auscultation bilaterally Abdomen: soft , nontender, nondistended, bowel sounds positive Extremities: no edema clubbing or cyanosis Skin: no rash or lesions Neurologic: Patient is verbal and communicative, nursing staff relates that she is had episodes of shaking of her right upper extremity, which have improved with benzodiazepines. Psych: calm, and cooperative - Constitutional Vitals: Temp Pulse Resp BP Pulse Ox 98.6 F 97 H 18 171/91 99 05/04/19 08:00 05/04/19 08:00 05/04/19 08:00 05/03/19 09:30 05/04/19 08:00 Results - Labs CBC & Chem 7: 05/05/19 07:45 05/05/19 07:45 Labs: Laboratory Last Values WBC 7.3 K/mm3 (4.5-11.0) 05/03/19 06:42 RBC 5.57 M/mm3 (3.65-5.03) H 05/03/19 06:42 Hgb 15.0 gm/dl (10.1-14.3) H 05/03/19 06:42 Hct 43.7 % (30.3-42.9) H 05/03/19 06:42 MCV 78 fl (79-97) L 05/03/19 06:42 MCH 27 pg (28-32) L 05/03/19 06:42 MCHC 34 % (30-34) 05/03/19 06:42 RDW 15.2 % (13.2-15.2) 05/03/19 06:42 Plt Count 219 K/mm3 (140-440) 05/03/19 06:42 Lymph % (Auto) 31.8 % (13.4-35.0) 05/03/19 06:42 [place] % (Auto) 7.9 % (0.0-7.3) H 05/03/19 06:42 Eos % (Auto) 1.6 % (0.0-4.3) 05/03/19 06:42 Baso % (Auto) 0.8 % (0.0-1.8) 05/03/19 06:42 Lymph # 2.3 K/mm3 (1.2-5.4) 05/03/19 06:42 [place] # 0.6 K/mm3 (0.0-0.8) 05/03/19 06:42 Eos # 0.1 K/mm3 (0.0-0.4) 05/03/19 06:42 Baso # 0.1 K/mm3 (0.0-0.1) 05/03/19 06:42 Seg Neutrophils % 57.9 % (40.0-70.0) 05/03/19 06:42 Seg Neutrophils # 4.2 K/mm3 (1.8-7.7) 05/03/19 06:42 PT 13.6 Sec. (12.2-14.9) 05/03/19 06:42 INR 1.07 (0.87-1.13) 05/03/19 06:42 APTT 32.2 Sec. (24.2-36.6) 05/03/19 06:42 Thrombin Time 16.8 Sec. (15.1-19.6) 05/03/19 06:42 Sodium 140 mmol/L (137-145) 05/03/19 06:42 Potassium 3.7 mmol/L (3.6-5.0) 05/03/19 06:42 Chloride 105.7 mmol/L (98-107) 05/03/19 06:42 Carbon Dioxide 22 mmol/L (22-30) 05/03/19 06:42 Anion Gap 16 mmol/L 05/03/19 06:42 BUN 5 mg/dL (7-17) L 05/03/19 06:42 Creatinine 0.8 mg/dL (0.7-1.2) 05/03/19 06:42 Estimated GFR > 60 ml/min 05/03/19 06:42 BUN/Creatinine Ratio 6 % 05/03/19 06:42 Glucose 111 mg/dL (65-100) H 05/03/19 06:42 POC Glucose 86 (70-105) 05/03/19 06:22 Calcium 9.4 mg/dL (8.4-10.2) 05/03/19 06:42 Magnesium 2.30 mg/dL (1.7-2.3) 05/03/19 06:42 Total Bilirubin 0.30 mg/dL (0.1-1.2) 05/03/19 06:42 Direct Bilirubin < 0.2 mg/dL (0-0.2) 05/03/19 06:42 Indirect Bilirubin 0.1 mg/dL 05/03/19 06:42 AST 14 units/L (5-40) 05/03/19 06:42 ALT 12 units/L (7-56) 05/03/19 06:42 Alkaline Phosphatase 66 units/L (35-129) 05/03/19 06:42 Troponin T < 0.010 ng/mL (0.00-0.029) 05/03/19 06:42 Total Protein 7.4 g/dL (6.3-8.2) 05/03/19 06:42 Albumin 3.8 g/dL (3.9-5) L 05/03/19 06:42 Albumin/Globulin Ratio 1.1 % 05/03/19 06:42 Urine Color Yellow (Yellow) 05/03/19 08:00 Urine Turbidity Clear (Clear) 05/03/19 08:00 Urine pH 6.0 (5.0-7.0) 05/03/19 08:00 Ur Specific [place] 1.015 (1.003-1.030) 05/03/19 08:00 Urine Protein <15 mg/dl mg/dL (Negative) 05/03/19 08:00 Urine Glucose (UA) Neg mg/dL (Negative) 05/03/19 08:00 Urine Ketones Neg mg/dL (Negative) 05/03/19 08:00 Urine Blood Neg (Negative) 05/03/19 08:00 Urine Nitrite Neg (Negative) 05/03/19 08:00 Urine Bilirubin Neg (Negative) 05/03/19 08:00 Urine Urobilinogen < 2.0 mg/dL (<2.0) 05/03/19 08:00 Ur Leukocyte Esterase Neg (Negative) 05/03/19 08:00 Urine WBC (Auto) 1.0 /HPF (0.0-6.0) 05/03/19 08:00 Urine RBC (Auto) 4.0 /HPF (0.0-6.0) 05/03/19 08:00 U Epithel Cells (Auto) 1.0 /HPF (0-13.0) 05/03/19 08:00 Urine Mucus Few /HPF 05/03/19 08:00 Urine Opiates Screen Presumptive negative 05/03/19 08:00 Urine Methadone Screen Presumptive negative 05/03/19 08:00 Ur Barbiturates Screen Presumptive negative 05/03/19 08:00 Ur Phencyclidine Scrn Presumptive negative 05/03/19 08:00 Ur Amphetamines Screen Presumptive negative 05/03/19 08:00 U Benzodiazepines Scrn Presumptive negative 05/03/19 08:00 Urine Cocaine Screen Presumptive negative 05/03/19 08:00 U Marijuana (THC) Screen Presumptive negative 05/03/19 08:00 Drugs of Abuse Note Disclamer 05/03/19 08:00 Active Medications - Current Medications Current Medications: Generic Name Dose Route Start Last Admin Trade Name Freq PRN Reason Stop Dose Admin Acetaminophen 650 mg 05/04/19 08:33 Tylenol PO Q6H PRN mild pain /fever Brimonidine/Timolol 1 drops 05/04/19 11:00 Combigan 0.2-0.5% OU Q12HR IMTIAZ Calcium/Vitamin D 1 each 05/04/19 10:00 Oysco D 500 Mg-200 Unit PO QDAY IMTIAZ Clonazepam 1 mg 05/03/19 22:02 05/03/19 23:09 Klonopin PO 1 mg Q6H PRN Administration Anxiety Clopidogrel Bisulfate 75 mg 05/03/19 10:00 05/04/19 10:08 Plavix PO 75 mg DAILY IMTIAZ Administration Docusate Sodium 100 mg 05/03/19 10:00 05/04/19 10:07 Colace PO 100 mg DAILY IMTIAZ Administration Enoxaparin Sodium 40 mg 05/03/19 22:00 05/03/19 23:09 Lovenox SUB-Q 40 mg QDAY@2200 IMTIAZ Administration Hydralazine HCl 10 mg 05/03/19 12:03 Apresoline IV Q4HR PRN BP >160/100 Levetiracetam 1,000 mg/ 110 mls @ 400 mls/hr 05/04/19 10:00 05/04/19 10:20 Dextrose IV 400 mls/hr Q12HR IMTIAZ Administration Latanoprost 1 drops 05/04/19 18:00 Latanoprost 0.005% OU QPM IMTIAZ Lorazepam 1 mg 05/03/19 17:22 Ativan IV Q4H PRN Seizures Magnesium Hydroxide 30 ml 05/03/19 10:00 Milk Of Magnesia PO DAILY PRN Constipation Ondansetron HCl 4 mg 05/03/19 07:53 Zofran IV Q8H PRN Nausea And Vomiting Potassium Chloride 20 meq 05/03/19 10:00 05/04/19 10:07 K-Dur PO 20 meq BID IMTIAZ Administration Pravastatin Sodium 40 mg 05/03/19 22:00 05/03/19 23:10 Pravachol PO 40 mg QHS IMTIAZ Administration Senna/Docusate Sodium 2 tab 05/03/19 10:00 05/04/19 10:20 Senokot S PO 2 tab BID IMTIAZ Administration Sodium Chloride 10 ml 05/03/19 10:00 05/04/19 10:30 Sodium Chloride Flush Syringe 10 Ml IV 10 ml BID IMTIAZ Administration Sodium Chloride 10 ml 05/03/19 07:53 Sodium Chloride Flush Syringe 10 Ml IV PRN PRN LINE FLUSH
[2019-05-04] MEDS: CALCIUM CARBONATE/VITAMIN D3 500 MG-200 UNIT TAB PO SCH (11:25)
[2019-05-04] MEDS: COMBIGAN 0.2-0.5% OPHTH SOLN OU SCH (11:26)
[2019-05-04] MEDS: clonazePAM 0.5 MG TAB PO PRN (11:31)
--- NOTE | 2019-05-04 11:44 | Progress Note ---
Assessment and Plan PATIENT WAS SEEN BY YESTERDAY FOR FOCAL MOTOR SEIZURE INVOLVING RT UPPER AND LOWER EXTREMITIES FROM A LEFT HEMISPHERIC SEIZURE FOCUS I,.E. LEFT CORTICAL INFARCT. PATIENT ALSO HAD FREQUENT MYOCLONIC JERKS INVOLVING RIGHT UPPER EXTREMITY. IT WAS EXTREMELY SEVERE AND DID NOT RESPOND ADEQUATELY TO ATIVAN. THIS MORNING NURSE REPORTED THAT IT SEEMS LESS SINCE CLONAZEPAM 1MG WAS GIVEN LAST NIGHT AT 11.00PM. PHYSICAL EXAMINATION. PATIENT IS ALERT AND AWAKE. ANSWERS QUESTIONS APPROPRIATELY. CONTINUES TO HAVE FREQUENT JERKING MOVEMENT OF RT UPPER EXTREMITY HOWEVER MUCH LESS THAN LAST NIGHT. HEART-NORMAL RATE AND RHYTHM. CRANIAL NERVES - PUPILS REACT TO LIGHT, NO FACIAL ASYMMETRY,EOMI,NORMAL TONGUE MOVEMENTS, OTHER CRANIAL NERVES ARE WITH IN NORMAL LIMIT MOTOR- MILD WEAKNESS OF RT UPPER AND LOWER EXTREMITIES, RESIDUAL FROM PREVIOUS S TROKE. SENSORY- GROSSLY WITH IN NORMAL LIMIT. IMPRESSION. FOCAL MOTOR SEIZURE INVOLVING RT UPPER AND LOWER EXTREMITIES ALONG WITH FREQUENT MYOCLONIC JERKS RESPONDING TO KEPPRA AND CLONAZEPAM, PRN. RECOMMEND. 1. PLEASE CONTINUE KEPPRA 1000MG BID, WILL GIVE ONE DOSE OF 1MG CLONAZEPAM NOW AND CONTINUE Q 6HR PRN Objective - Vital Sign Vital Signs - 12hr 05/04/19 05/04/19 05/04/19 00:01 01:01 04:00 Temperature 97.4 F L 98.8 F Pulse Rate [ 96 H From Monitor] Respiratory 19 Rate O2 Sat by Pulse 99 Oximetry 05/04/19 05/04/19 07:32 08:00 Temperature 98.6 F Pulse Rate [ 97 H From Monitor] Respiratory 18 Rate O2 Sat by Pulse 99 99 Oximetry - Laboratory Findings CBC and BMP: 05/03/19 06:42 05/03/19 06:42 Abnormal Lab Findings: Abnormal Labs 05/03/19 05/03/19 05/03/19 06:42 06:42 06:42 RBC 5.57 H Hgb 15.0 H Hct 43.7 H MCV 78 L MCH 27 L Anderson % (Auto) 7.9 H BUN 5 L Glucose 111 H Albumin 3.8 L
--- NOTE | 2019-05-04 15:04 | Magnetic Resonance Report ---
MRI BRAIN WITHOUT CONTRAST INDICATION / CLINICAL INFORMATION: seizure. TECHNIQUE: Multisequence, multiplanar images were obtained. COMPARISON: 04/03/2017 FINDINGS: CEREBRAL and CEREBELLAR HEMISPHERES: Mild diffuse volume loss and chronic white matter changes are ag ain noted. Chronic cortical infarcts throughout the anterior and posterior watershed zones in the le ft cerebral hemisphere are again noted and unchanged. There is no evidence for acute ischemia, hemor rhage, mass or extra-axial fluid collection. The posterior fossa and contents remain unremarkable. VENTRICLES: There is mild compensatory enlargement of the left lateral ventricle from volume loss whi ch is unchanged. The right lateral ventricle is normal. Overall ventricular size is stable. VISUALIZED ORBITS: No significant abnormality. VISUALIZED PARANASAL SINUSES: No significant abnormality. ADDITIONAL FINDINGS: None. IMPRESSION: No acute intracranial process is identified. Chronic cortical infarcts throughout the left cerebral hemisphere watershed zones as described. Volume loss and chronic white matter changes. No change is appreciated since 04/03/2017. Signer Name: Aleksandr Taveras Jr, MD Signed: 05/04/2019 3:00 PM Workstation Name: [id number]
[2019-05-04] MEDS ORDERED: LATANOPROST 0.005% OPHTH SOLN 2.5 ML OU SCH (18:00)
[2019-05-04] MEDS: PRAVASTATIN 40 MG TAB PO SCH (23:02)
[2019-05-04] MEDS: ENOXAPARIN 40 MG/0.4 ML INJ SUB-Q SCH (23:09)
[2019-05-05] MEDS: levETIRAcetam 1,000 MG in DEXTROSE 5% IN WATER 100 ML IV SCH ×2 (01:13→09:09)
--- NOTE | 2019-05-05 07:38 | Discharge Summary ---
Providers - Providers Date of Admission: 05/03/19 07:39 Attending physician: SAGAR FITZPATRICK MD 05/03/19 07:53 Consult to Physician [CONS] Routine Comment: Consulting Provider: MICHAEL SALMON Physician Instructions: Reason For Exam: seizure Primary care physician: DAVIDSON SANDERS Hospitalization Condition: Stable Hospital course: 73-year-old woman who was brought to the hospital for shaking of right upper extremity, she has past medical history of stroke and seizure disorder Status epilepticus Patient presented with focal motor seizure. Discussed with neurologist who recommended benzodiazepines [id number]. Patient improved on this regimen. Her antiepileptic drugs were continued. HTN urgency Optimized BP medications Patient improved and was discharged back to her assisted. Disposition: DC/[facility] Time spent for discharge: 33 mins Core Measure Documentation - Palliative Care Palliative Care/ Comfort Measures: Not Applicable - Core Measures Any of the following diagnoses?: none Exam - Constitutional Vitals: Temp Pulse Resp BP Pulse Ox 97.8 F 82 20 131/77 97 05/05/19 02:11 05/05/19 02:11 05/05/19 02:11 05/05/19 02:11 05/05/19 02:11 General appearance: Present: no acute distress, well-nourished - EENT Eyes: Present: PERRL ENT: hearing intact, clear oral mucosa - Neck Neck: Present: supple, normal ROM - Respiratory Respiratory effort: normal Respiratory: bilateral: CTA - Cardiovascular Heart Sounds: Present: S1 & S2. Absent: rub, click - Extremities Extremities: pulses symmetrical, No edema Peripheral Pulses: within normal limits - Abdominal General gastrointestinal: Present: soft, non-tender, non-distended, normal bowel sounds Female genitourinary: Present: normal - Integumentary Integumentary: Present: clear, warm, dry - Musculoskeletal Musculoskeletal: gait normal, strength equal bilaterally - Psychiatric Psychiatric: appropriate mood/affect, intact judgment & insight - Neurologic Neurologic: CNII-XII intact, moves all extremities Plan Follow up with: DAVIDSON SANDERS MD [Primary Care Provider] - 3-5 Days Prescriptions: clonazePAM [KlonoPIN] 1 mg PO Q6H PRN #7 tablet PRN Reason: Seizures Gabapentin [Neurontin] 400 mg PO BID #60 capsule
[2019-05-05 07:50] VITALS: BP 139/61
[2019-05-05 08:02] LABS: Basophils # (Auto) 0.1 K/mm3 (0.0-0.1); Basophils % (Auto) 0.8 % (0.0-1.8); Eosinophils # (Auto) 0.3 K/mm3 (0.0-0.4); Eosinophils % (Auto) 3.8 % (0.0-4.3); Hematocrit 46.6 % (30.3-42.9); Hemoglobin 15.7 gm/dl (10.1-14.3); Lymphocytes # (Auto) 3.5 K/mm3 (1.2-5.4); Lymphocytes % (Auto) 44.5 % (13.4-35.0); Mean Corpuscular HGB Conc 34 % (30-34); Mean Corpuscular Volume 80 fl (79-97); Monocytes # (Auto) 0.9 K/mm3 (0.0-0.8); Monocytes % (Auto) 11.9 % (0.0-7.3); Platelet Count 195 K/mm3 (140-440); Red Blood Count 5.86 M/mm3 (3.65-5.03)
[2019-05-05] MEDS: POTASSIUM CHLORIDE ER 20 MEQ TAB PO SCH (09:06)
[2019-05-05] MEDS: CALCIUM CARBONATE/VITAMIN D3 500 MG-200 UNIT TAB PO SCH (09:06)
[2019-05-05] MEDS: DOCUSATE SODIUM 100 MG CAP PO SCH (09:07)
[2019-05-05] MEDS: CLOPIDOGREL 75 MG TAB PO SCH ×2 (09:08→09:09)
[2019-05-05] MEDS: COMBIGAN 0.2-0.5% OPHTH SOLN OU SCH (09:08)
[2019-05-05] MEDS: SENNOSIDES/DOCUSATE SODIUM 8.6/50 MG TAB PO SCH (09:13)
[2019-05-05 09:41] LABS: BUN/Creatinine Ratio 9; Blood Urea Nitrogen 7 mg/dL (7-17); Calcium 9.8 mg/dL (8.4-10.2); Hemolysis Index 12
== END 2019-05-05 12:40 | DRG 101 ==
LOC: ED 06:07 → IMCU 07:39 → 2B-ACE 05-04 21:43
PROVIDERS: ADMIT Internal Medicine; ATTEND Internal Medicine
DX: R56.9 Unspecified convulsions (principal); I69.351 Hemiplegia and hemiparesis following cerebral infarction affecting right dominant side; I16.0 Hypertensive urgency; M10.9 Gout, unspecified; F03.90 Unspecified dementia, unspecified severity, without behavioral disturbance, psychotic disturbance, mood disturbance, and anxiety; I69.320 Aphasia following cerebral infarction; Z79.899 Other long term (current) drug therapy; Z86.718 Personal history of other venous thrombosis and embolism
CPT/HCPCS: 36415; 70450; 70551; 80048; 80076; 80307; 81001; 82962; 83735; 84484; 85025; 85610; 85670; 85730; 93005; 93010; 94760; 95819; G0378; A9270-GY; J1650; J1953; J2060; Q2009

== ENCOUNTER 2019-09-30 13:51 | Emergency (ER) | payer MEDICARE ==
--- NOTE | 2019-09-30 15:03 | Emergency Department Report ---
HPI - General Chief Complaint: Vaginal Bleeding Time Seen by Provider: 09/30/19 14:46 - HPI HPI: 74-year-old -[place] female presents to the emergency department via EMS from her [place] retirement with complaint of a 10-day history of heavy va ginal bleeding with clots. She has a past medical history of previous CVA with hemiplegia, hypertension, gout, seizures. Patient denies any abdominal or pelvic pain. It does not appear that she is on any blood thinning medication but she does take Plavix. Unknown whether she received anything for symptoms prior to presentation today. ED Past Medical Hx - Past Medical History Hx Hypertension: Yes Hx CVA: Yes Hx Seizures: Yes Hx Psychiatric Treatment: Yes ("behavorial issues") Hx Dementia: Yes Additional medical history: DVT - Social History Smoking Status: Never Smoker - Medications Home Medications: Home Medications Medication Instructions Recorded Confirmed Last Taken Type Acetaminophen [Acetaminophen TAB] 650 mg PO Q6H PRN 11/04/13 05/03/19 Unknown History Calcium Carbonate [Oscal 1250MG 500 mg PO DAILY 11/04/13 05/03/19 Unknown History TAB] Docusate Sodium [Colace CAP] 100 mg PO DAILY 11/04/13 05/03/19 Unknown History Magnesium Hydroxide [Milk of 30 ml PO DAILY PRN 11/04/13 05/03/19 Unknown History Magnesia] Potassium Chloride [Klor-Con 10] 20 meq PO BID 11/04/13 05/03/19 Unknown History Sennosides/Docusate Sodium [Senna 2 tab PO BID 11/04/13 05/03/19 Unknown History Laxative Tablet] Clopidogrel [Plavix] 75 mg PO ONCE #30 tablet 11/06/13 05/03/19 Unknown Rx Simvastatin (Nf) [Zocor TAB] 20 mg PO QHS #30 tablet 11/06/13 05/03/19 Unknown Rx Brimonidine Tartrate/Timolol 10 ml OP Q12HR 05/03/19 05/03/19 Unknown History [Combigan 0.2%-0.5% Eye Drops] Brinzolamide [Azopt 1%] 1 drop OU Q12HR 05/03/19 05/03/19 Unknown History Calcium Carbonate/Vitamin D3 1 each PO QDAY 05/03/19 05/03/19 Unknown History [Oysco 500-Vit D3 200 Tablet] Latanoprost 0.005% 1 drop OP QPM 05/03/19 05/03/19 Unknown History levETIRAcetam [Keppra] 1,000 mg PO BID 05/03/19 05/03/19 Unknown History Gabapentin 400 mg PO BID #60 capsule 05/05/19 Unknown Rx clonazePAM [KlonoPIN] 1 mg PO Q6H PRN #7 tablet 05/05/19 Unknown Rx Nitrofurantoin [place]/M-Cryst 100 mg PO Q12HR #14 capsule 09/30/19 Unknown Rx [Macrobid CAP] ED Review of Systems ROS: Stated complaint: VAGINAL BLEEDING/10XDAYS Other details as noted in HPI Comment: Unobtainable due to pts medical conditions Gastrointestinal: denies: abdominal pain Genitourinary: other (Vaginal bleeding) Physical Exam - Physical Exam Physical Exam: GENERAL: The patient is well-developed well-nourished. HENT: Normocephalic. Atraumatic. Patient has moist mucous membranes. EYES: Extraocular motions are intact. NECK: Supple. Trachea is midline. CHEST/LUNGS: Clear to auscultation. There is no respiratory distress noted. HEART/CARDIOVASCULAR: Regular. There is no tachycardia. There is no murmur. ABDOMEN: Abdomen is soft, nontender. Patient has normal bowel sounds. There is no abdominal distention. SKIN: Skin is warm and dry. NEURO: The patient is awake, alert and cooperative. AAO x2. Normal speech. MUSCULOSKELETAL: There is no tenderness or deformity. Right-sided hemiplegia. There is no evidence of acute injury. ED Medical Decision Making - Lab Data Result diagrams: 09/30/19 15:05 09/30/19 15:05 - Radiology Data Radiology results: report reviewed Pelvic ultrasound complete INDICATION: . Postmenopausal bleeding FINDINGS: The uterus measures 8.6 cm in length. Endometrial stripe measures 7 mm. No mass lesions are seen. Neither ovary is visualized. No free fluid is seen. IMPRESSION: There is mild thickening of the endometrium. No discrete mass lesions are seen. The thickening of the endometrium with postmenopausal bleeding raises concern for possible endometrial neoplasm no the findings on this ultrasound are not definitive. CT ABDOMEN AND PELVIS WITH IV CONTRAST INDICATION: Abnormal vaginal bleeding and abnormal pelvic ultrasound. TECHNIQUE: Following the administration of intravenous contrast, multiple axial CT images of the abdomen and pelvis were acquired. Sagittal and coronal reformats were obtained. All CT performed at this facility utilize dose reduction techniques including automated exposure control, iterative reconstruction and weight based dosing when appropriate to reduce patient radiation dose to as low as reasonably achievable. COMPARISON: No prior abdominal imaging is available for comparison. Pelvic ultrasound from earlier today on 09/30/2019 was reviewed. FINDINGS: There is diffuse bilateral i nterstitial thickening at the visualized lung bases. Abdomen: Multiple calcified stones are present within the gallbladder. The liver, pancreas, spleen, bilateral adrenal glands and bilateral kidneys show no definitive evidence of acute abnormality. There is a subcentimeter left adrenal adenoma. There are scattered atherosclerotic calcifications along the abdominal aorta without evidence for aneurysm. The appendix is visualized and appears normal. There is no evidence of bowel obstruction or free fluid. Pelvis: The uterus measures 4.8 x 8.2 cm and appears moderately heterogeneous. There is a small amount of endometrial fluid, as demonstrated on the recent pelvic ultrasound. There is generalized soft tissue fullness and possible mass effect within the lower uterine segment and vagina. No free pelvic fluid is visualized. Bones and Soft Tissues: Evaluation of bony structures demonstrates no evidence of acute bony abnormality. IMPRESSION: 1. Mildly enlarged heterogeneous appearing uterus c ontaining a small amount of endometrial fluid is demonstrated on the previous study. There is soft tissue fullness and possible mass effect within the lower uterine segment. - Medical Decision Making This patient was sent in from her retirement facility for evaluation of a 10- day history of some vaginal bleeding. Apparently was heavy with some clots but there does not appear to have been any significant active hemorrhage. Patient's hemoglobin is at 14 and therefore does not appear to require any type of transfusion at this time. A pelvic ultrasound was completed that showed a thickened endometrium but the patient's bladder was not full and she refused a transvaginal view and therefore it was not a definitive test. For this reason CT of the abdomen and pelvis with IV contrast was completed that once again showed a thickened endometrium and possible mass-effect of lower uterine soft tissue segment that could represent mass, although no definitive mass was seen. Her vital signs been stable throughout her ED course. For all these reasons the patient appears safe for discharge back to her facility at this time. She has been instructed to follow-up with [facility] and has been given multiple referrals for local [facility] groups. She has also been instructed to return to the emergency department with any worsening of her symptoms or any acute distress. - Differential Diagnosis Malignancy, fibroids, UTI Critical Care Time: No Critical care attestation.: If time is entered above; I have spent that time in minutes in the direct care of this critically ill patient, excluding procedure time. ED Disposition Clinical Impression: Dysfunctional uterine bleeding UTI (urinary tract infection) Qualifiers: Urinary tract infection type: acute cystitis Hematuria presence: without hematuria Qualified Code(s): N30.00 - Acute cystitis without hematuria Disposition: TO HOME OR SELFCARE Is pt being admited?: No Condition: Stable Instructions: Dysfunctional Uterine Bleeding (ED), Urinary Tract Infection in Women (ED) Additional Instructions: Please follow-up with an [facility] in the next few days regarding the abnormal vaginal bleeding. Also, the CT scan of your abdomen and pelvis with IV contrast shows that the lining of the uterus is slightly enlarged and there is a possibility of a lower uterine mass that also needs further evaluation by an [facility]. Take the antibiotics as prescribed for your urinary tract infection. Return to the emergency department immediately with any worsening of your symptoms or with any acute distress. Prescriptions: Nitrofurantoin [place]/M-Cryst [Macrobid CAP] 100 mg PO Q12HR #14 capsule Referrals: [facility] [Provider Group] - 2-3 Days [facility] [Provider Group] - 2-3 Days [facility] [Provider Group] - 2-3 Days Time of Disposition: 19:53
[2019-09-30 15:24] LABS: Basophils # (Auto) 0.1 K/mm3 (0.0-0.1); Basophils % (Auto) 1.1 % (0.0-1.8); Eosinophils # (Auto) 0.3 K/mm3 (0.0-0.4); Hematocrit 41.9 % (30.3-42.9); Hemoglobin 14.3 gm/dl (10.1-14.3); Lymphocytes # (Auto) 2.6 K/mm3 (1.2-5.4); Lymphocytes % (Auto) 42.9 % (13.4-35.0); Mean Corpuscular HGB Conc 34 % (30-34); Mean Corpuscular Volume 78 fl (79-97); Monocytes # (Auto) 0.7 K/mm3 (0.0-0.8); Monocytes % (Auto) 10.9 % (0.0-7.3); Platelet Count 212 K/mm3 (140-440); Red Blood Count 5.37 M/mm3 (3.65-5.03); Red Cell Distribution Width 15.2 % (13.2-15.2)
[2019-09-30 15:34] LABS: INR 1.08 (0.87-1.13)
[2019-09-30 15:45] LABS: Alanine Aminotransferase 12 units/L (7-56); Albumin 3.6 g/dL (3.9-5); BUN/Creatinine Ratio 6; Blood Urea Nitrogen 5 mg/dL (7-17); Hemolysis Index 4
--- NOTE | 2019-09-30 16:20 | Ultrasound Report ---
Pelvic ultrasound complete INDICATION: . Postmenopausal bleeding FINDINGS: The uterus measures 8.6 cm in length. Endometrial stripe measures 7 mm. No mass lesions are seen. Nei ther ovary is visualized. No free fluid is seen. IMPRESSION: There is mild thickening of the endometrium. No discrete mass lesions are seen. The thickening of the endometrium with postmenopausal bleeding raises concern for possible endometrial neoplasm no the fin dings on this ultrasound are not definitive. Signer Name: Romulo Jerome MD Signed: 09/30/2019 4:16 PM Workstation Name: [id number]
[2019-09-30 19:23] LABS: Bilirubin,Urine NEG (Negative); Blood,Urine SM (Negative); Color,Urine Straw (Yellow); Protein,Urine <15 mg/dL mg/dL (Negative); Urobilinogen,Urine < 2.0 mg/dL (<2.0)
--- NOTE | 2019-09-30 19:46 | Cat Scan Report ---
CT ABDOMEN AND PELVIS WITH IV CONTRAST INDICATION: Abnormal vaginal bleeding and abnormal pelvic ultrasound. TECHNIQUE: Following the administration of intravenous contrast, multiple axial CT images of the abdo men and pelvis were acquired. Sagittal and coronal reformats were obtained. All CT performed at this facility utilize dose reduction techniques including automated exposure control, iterative reconstru ction and weight based dosing when appropriate to reduce patient radiation dose to as low as reasonab ly achievable. COMPARISON: No prior abdominal imaging is available for comparison. Pelvic ultrasound from earlier to day on 09/30/2019 was reviewed. FINDINGS: There is diffuse bilateral interstitial thickening at the visualized lung bases. Abdomen: Multiple calcified stones are present within the gallbladder. The liver, pancreas, spleen, b ilateral adrenal glands and bilateral kidneys show no definitive evidence of acute abnormality. There is a subcentimeter left adrenal adenoma. There are scattered atherosclerotic calcifications along th e abdominal aorta without evidence for aneurysm. The appendix is visualized and appears normal. There is no evidence of bowel obstruction or free fluid. Pelvis: The uterus measures 4.8 x 8.2 cm and appears moderately heterogeneous. There is a small amoun t of endometrial fluid, as demonstrated on the recent pelvic ultrasound. There is generalized soft ti ssue fullness and possible mass effect within the lower uterine segment and vagina. No free pelvic fl uid is visualized. Bones and Soft Tissues: Evaluation of bony structures demonstrates no evidence of acute bony abnormal ity. IMPRESSION: 1. Mildly enlarged heterogeneous appearing uterus containing a small amount of endometrial fluid is d emonstrated on the previous study. There is soft tissue fullness and possible mass effect within the lower uterine segment. Gynecological consultation is recommended in this postmenopausal patient with abnormal vaginal bleeding. Signer Name: Kimber Landeros MD Signed: 09/30/2019 7:42 PM Workstation Name: [id number]
[2019-09-30] MEDS ORDERED: NITROFURANTOIN MONOHYD/M-CRYST 100 MG CAP PO ONE (19:47)
[2019-09-30 19:56] VITALS: BP 160/81
== END 2019-09-30 21:16 | disposition home or self-care (01) ==
LOC: ED 13:51
DX: N93.8 Other specified abnormal uterine and vaginal bleeding (principal); N39.0 Urinary tract infection, site not specified; I10 Essential (primary) hypertension; F03.90 Unspecified dementia, unspecified severity, without behavioral disturbance, psychotic disturbance, mood disturbance, and anxiety; Z86.69 Personal history of other diseases of the nervous system and sense organs; Z86.73 Personal history of transient ischemic attack (TIA), and cerebral infarction without residual deficits; Z86.718 Personal history of other venous thrombosis and embolism; Z79.899 Other long term (current) drug therapy
CPT/HCPCS: 36415; 74177; 76856; 80053; 81001; 85025; 85610; 86850; 86900; 86901; 87086; 99285; Q9967